=== PATIENT | female | born 1960 | race Caucasian/White ===

== ENCOUNTER 2024-04-22 13:39 | Emergency (ER) | payer MEDICARE, BC, SELFPAY ==
[2024-04-22 14:01] VITALS: BP 157/76; PULSE 81; RESP 16; TEMP 36.5; O2SAT 98; BMI 22.8
--- NOTE | 2024-04-22 14:24 | ED_ITS ---
HPI - Abdominal Pain 2 General: Chief Complaint: Abdominal Pain Stated Complaint: colon cramping Time Seen by Provider: 04/22/24 14:22 Source: patient Mode of arrival: ambulatory Limitations: no limitations History of Present Illness: Patient is a 64-year-old female presents to ED today along with her significant other for complaint of abdominal pain/cramping. Patient states she underwent colonoscopy approximately a month ago due to episode of colitis and her being not up-to-date on current colonoscopies. She states she does have a family history of colon cancer. She states the colonoscopy ultimately could not be performed and states she was told the scope going into her diverticuli . She states they scheduled her for a barium enema procedure. She states she was in [place] today and had a PET scan after nodules were found on her lungs. No results from that yet. She states she has had pain since the colonoscopy. She does have a history of colitis and diverticulitis. Since the colonoscopy, she has been seen at [facility] and was essentially told nothing was wrong. She was prescribed Bentyl. Patient not having any bloody stools. She has not had any vomiting. No fevers. MD elicited complaint: abdominal pain Pertinent past history: other (colitis/diverticulitis; family hx colon cancer) Pain Consistency: constant Location: Diffuse Severity: severe Quality: cramping Radiation: none Migration to: no migration Exacerbating factors: nothing Relieving factors: nothing Associated Symptoms: Reports GI cramping; Denies change in bowel habits, chills, dysuria, fever(s), hematochezia, melena, nausea and vomiting Related Data Home Medications Medication Instructions Recorded Confirmed dicyclomine 20 mg tablet 20 mg PO Q6H 04/22/24 04/22/24 hyoscyamine sulfate 0.375 mg 0.375 mg PO BID 04/22/24 04/22/24 tablet,extended release,12 hr levothyroxine 75 mcg tablet 75 mcg PO DAILY 04/22/24 04/22/24 (Synthroid) ondansetron 4 mg disintegrating 4 mg PO Q6H PRN Nausea And Vomiting 04/22/24 04/22/24 tablet pantoprazole 40 mg tablet,delayed 40 mg PO DAILY 04/22/24 04/22/24 release venlafaxine 150 mg 150 mg PO DAILY 04/22/24 04/22/24 capsule,extended release 24 hr Previous Rx's Medication Instructions Recorded amoxicillin 875 mg-potassium 1 tab PO BID #14 tabs 04/22/24 clavulanate 125 mg tablet hydrocodone 5 mg-acetaminophen 325 1 tab PO Q6H PRN pain #14 tabs 04/22/24 mg tablet ondansetron 4 mg disintegrating 4 mg PO Q8H PRN nausea and 04/22/24 tablet vomiting #14 tabs Allergies Allergy/AdvReac Type Severity Reaction Status Date / Time meperidine [From Demerol] Allergy ADR-Vomitin Verified 04/22/24 14:06 g metronidazole [From Flagyl] Allergy ADR-Vomitin Verified 04/22/24 14:06 g morphine Allergy ADR-Vomitin Verified 04/22/24 14:06 g Review of Systems 2 Const: Denies: fever(s), chills, body aches, fatigue or malaise Card: Denies: chest pain Resp: Denies: dyspnea GI: Reports: abdominal pain and GI cramping; Denies: nausea, vomiting, change in bowel habits, hematochezia or melena : Denies: flank pain, difficulty voiding, dysuria, urinary frequency, urinary urgency or urinary hesitancy Musc: Denies: neck pain, back pain, extremity pain, extremity swelling, joint pain or joint swelling Skin/Breast: Denies: rash Neuro: Denies: headache(s), numbness in extremities, weakness in extremities, sensory changes or dizziness Physical Exam 2 Const: COMMON NORMALS: no acute distress, average body habitus, patient oriented x3, no limitations, healthy appearing, alert and well nourished G ENERAL APPEARANCE: cooperative ORIENTATION/CONSCIOUSNESS: Yes awake, Yes oriented to person, Yes oriented to place and Yes oriented to time Eye: COMMON NORMALS: no scleral icterus Resp: COMMON NORMALS: normal respiratory effort and clear to auscultation bilaterally AUSCULTATION: clear to auscultation bilaterally Cardio: COMMON NORMALS: regular rate and regular rhythm RATE: regular rate RHYTHM: regular rhythm GI: COMMON NORMALS: Normal to inspection, nondistended, normoactive bowel sounds present, Soft to palpation, No hepatosplenomegaly present and no masses INSPECTION: Yes normal to inspection AUSCULTATION: Yes normoactive bowel sounds PALPATION: Yes Soft to palpation, Yes Tenderness to palpation present (GI) (diffusely but max to LLQ), Yes Guarding due to palpation present (GI) and Yes No hepatosplenomegaly present : COMMON NORMALS: Yes no CVA tenderness BLADDER/KIDNEY EXAM: Yes no CVA tenderness Back/Pelvis: COMMON NORMALS: no CVA tenderness and thoracic and lumbar spine normal to inspection Extremity: GENERAL: Yes normal exam except as noted Neuro: RASTA COMA SCALE: document GCS findings Rasta coma scale eye opening: Spontaneous Rasta coma scale verbal response: Orientated Rasta coma scale motor response: Obey commands [place] coma scale total score: 15 COMMON NORMALS: patient oriented x3, moves all extremities, no focal motor deficits and no sensory deficits noted SENSORIUM/ORIENTATION: Yes alert, Yes oriented to person, Yes oriented to place and Yes oriented to time Skin: COMMON NORMALS: no rashes or lesions noted GENERAL SKIN EXAM: no rashes or lesions noted Course 2 Vital Signs: Vital signs: Vital Signs Temperature 97.7 F 04/22/24 14:01 Pulse Rate 78 04/22/24 16:05 Respiratory Rate 16 04/22/24 16:05 Blood Pressure 121/53 04/22/24 16:05 Pulse Oximetry 96 04/22/24 16:05 Oxygen Delivery Me thod Room Air 04/22/24 16:05 MDM - Abdominal Pain Medical Decision Making Patient is a nice 64-year-old female here for abdominal pain and cramping mainly involving her left lower quadrant. Vital signs are stable. Blood work overall is unremarkable. UA is clear. CT scan showing mild acute diverticulitis involving her sigmoid colon. No abscess or free air. Incidental findings of pulmonary and hepatic nodules. She underwent PET scan earlier today for evaluation of the pulmonary nodules. Results of this are unknown but she will follow-up. Discussed treatment with Cipro and Flagyl for the diverticulitis although she is reporting an allergy to Flagyl so she will be treated with Augmentin. Requesting pain medications as well. Recommend she follow-up with primary care next week for re-evaluation. Return to ED precautions given Medical Records I reviewed the patient's medical records. Lab Data I reviewed the patient's lab results. 04/22/24 14:43 04/22/24 14:43 Labs/Radiology: Radiology Impressions Abdomen/Pelvis CT 04/22/24 14:30 IMPRESSION: 1. Possible mild acute diverticulitis mid sigmoid colon. No associated abscess. No free air. 2. Two tiny low-density lesions in the liver are probably cysts, but are too small to accurately characterize. Consider a follow-up CT in 6 months to ensure stability of these likely benign findings. 3. A few 5 mm and smaller solid noncalcified nodules in the lung bases. For patients at low risk (minimal or absent history of smoking and of other known risk factors), no routine follow-up is indicated. For patients at high risk (history of smoking or of other known risk factors), consider optional CT Chest at 12 months. (Reference: Lorrie). 4. Mild elevation of the right hemidiaphragm. 5. Possible constipation. 6. Additional details as above. REFERENCES: Lorrie Cuenca, et al. Guidelines for Management of Incidental Pulmonary Nodules Detected on CT Images: From the Fleischner Society 2017. Radiology. 2017;284(1):228-243. Laboratory Results WBC 6.44 10^3/uL (3.29-11.43) 04/22/24 14:43 RBC 4.69 10^6/uL (3.85-5.65) 04/22/24 14:43 Hgb 14.40 g/dL (11.27-16.99) 04/22/24 14:43 Hct 44.0 % (36-47) 04/22/24 14:43 MCV 93.8 fl (85-98) 04/22/24 14:43 MCH 30.7 pg (27-33) 04/22/24 14:43 MCHC 32.7 g/dL (30-55) 04/22/24 14:43 RDW 12.4 % (12.1-15.1) 04/22/24 14:43 Plt Count 241 10^3/cmm (157-399) 04/22/24 14:43 MPV 10.3 fL (7.4-10.4) 04/22/24 14:43 Neut % (Auto) 75.2 % 04/22/24 14:43 Lymph % (Auto) 16.0 % 04/22/24 14:43 [place] % (Auto) 8.4 % 04/22/24 14:43 Eos % (Auto) 0.2 % 04/22/24 14:43 Baso % (Auto) 0.0 % 04/22/24 14:43 Neut # (Auto) 4.85 10^3/uL (1.8-7.7) 04/22/24 14:43 Lymph # (Auto) 1.0 10^3/uL (0.8-4.8) 04/22/24 14:43 [place] # (Auto) 0.5 10^3/uL (0.2-0.9) 04/22/24 14:43 Eos # (Auto) 0.0 10^3/uL (0.0-0.8) 04/22/24 14:43 Baso # (Auto) 0.0 10^3/uL (0.0-0.1) 04/22/24 14:43 Nucleated RBC % (auto) 0 % 04/22/24 14:43 Nucleated RBCs # 0.0 /100WBC 04/22/24 14:43 Sodium 138 mmol/L (136-145) 04/22/24 14:43 Potassium 3.9 mmol/L (3.5-5.1) 04/22/24 14:43 Chloride 99 mmol/L (98-107) 04/22/24 14:43 Carbon Dioxide 27 mmol/L (22-29) 04/22/24 14:43 Anion Gap 15.9 (5-19) 04/22/24 14:43 BUN 13 mg/dL (8-23) 04/22/24 14:43 Creatinine 0.6 mg/dL (0.5-0.9) 04/22/24 14:43 GFR Calculation 100.3 mL/min (90-130) 04/22/24 14:43 Glucose 101 mg/dL (65-115) 04/22/24 14:43 Calculated Osmolality 286 mOsm/kg (285-295) 04/22/24 14:43 Calcium 9.2 mg/dL (8.5-10.5) 04/22/24 14:43 Total Bilirubin 0.3 mg/dL (0.15-1.2) 04/22/24 14:43 AST 19 U/L (0-32) 04/22/24 14:43 ALT 13 U/L (0-33) 04/22/24 14:43 Alkaline Phosphatase 85 U/L (35-105) 04/22/24 14:43 Total Protein 7.4 g/dL (6.6-8.7) 04/22/24 14:43 Albumin 4.6 g/dL (3.5-5.2) 04/22/24 14:43 Globulin 2.8 g/dL (1.3-4.6) 04/22/24 14:43 Lipase 23 U/L (13-60) 04/22/24 14:43 Urine Color Yellow (Yellow) 04/22/24 14:47 Urine Appearance Clear (CLEAR) 04/22/24 14:47 Urine pH 6 (5-7) 04/22/24 14:47 Ur Specific [place] 1.015 (1.005-1.030) 04/22/24 14:47 Urine Protein Trace (Negative) 04/22/24 14:47 Urine Glucose (UA) Norm (Normal) 04/22/24 14:47 Urine Ketones Negative (Negative) 04/22/24 14:47 Urine Blood Neg (Negative) 04/22/24 14:47 Urine Nitrate Negative (Negative) 04/22/24 14:47 Urine Bilirubin Neg (Negative) 04/22/24 14:47 Urine Urobilinogen Norm mg/dL (Negative) 04/22/24 14:47 Ur Leukocyte Esterase Negative (Negative) 04/22/24 14:47 Urine RBC 0-2 /hpf (0-2) 04/22/24 14:47 Urine WBC 6-10 /hpf (0-5) 04/22/24 14:47 Ur Squamous Epith Cells 0-5 /hpf (0-5) 04/22/24 14:47 Calcium Oxalate Crystal 5-10 /hpf H 04/22/24 14:47 Amorphous Sediment Not Reportable 04/22/24 14:47 Urine Bacteria None seen /hpf (NONE) 04/22/24 14:47 Hyaline Casts 0-4 /lpf H 04/22/24 14:47 Ur Oval Fat Bodies 1+ /hpf 04/22/24 14:47 All radiology interpretation(s) finalized by discharge Discharge Plan Discharge Patient Disposition: Home Clinical Impression: Diverticulitis Condition: Stable Prescriptions: New hydrocodone-acetaminophen 5-325 mg tablet 1 tab PO Q6H PRN (Reason: pain) Qty: 14 0RF ondansetron 4 mg tablet,disintegrating 4 mg PO Q8H PRN (Reason: nausea and vomiting) Qty: 14 0RF amoxicillin-pot clavulanate 875-125 mg tablet 1 tab PO BID Qty: 14 0RF No Action venlafaxine 150 mg capsule,extended release 24hr 150 mg PO DAILY levothyroxine [Synthroid] 75 mcg tablet 75 mcg PO DAILY hyoscyamine sulfate 0.375 mg tablet extended release 12 hr 0.375 mg PO BID dicyclomine 20 mg tablet 20 mg PO Q6H pantoprazole 40 mg tablet,delayed release (DR/EC) 40 mg PO DAILY ondansetron 4 mg tablet,disintegrating 4 mg PO Q6H PRN (Reason: Nausea And Vomiting) Discharge Orders: Discharge ED (Routine); Ordered 04/22/24 Ordered By: Qing Morris Patient Instructions: Diverticulitis, Diverticulitis (DC), Opioid Safety, Pain Management Activity Restrictions/Additional Instructions: Please fill your antibiotics and start them immediately. You may take the pain medications sparingly for severe pain. Make sure you take them with stool softeners and/or MiraLAX to help avoid further constipation. Please follow-up with your primary care next week for reevaluation. You need to return to the emergency department for worsening abdominal pain, repetitive episodes of vomiting, inability to hold down your antibiotics, fevers, generally feeling worse or unwell, or any other concerns you may have. I hope you begin to feel better soon. Coding Level of Care Code ED Vacuum System Tester for Ramana Aguilar
--- NOTE | 2024-04-22 14:30 | CTR_ITS ---
PROCEDURE INFORMATION: Exam: CT Abdomen And Pelvis With Contrast Exam date and time: 04/22/2024 3:33 PM Age: 64 years old Clinical indication: Abdominal pain; Generalized; Additional info: Abdominal pain/cramping, HX colitis, diverticulitis; Colonoscopy several weeks ago TECHNIQUE: Imaging protocol: Computed tomography of the abdomen and pelvis with contrast. Radiation optimization: All CT scans at this facility use at least one of these dose optimization techniques: automated exposure control; mA and/or kV adjustment per patient size (includes targeted exams where dose is matched to clinical indication); or iterative reconstruction. Contrast material: OMNI 350; Contrast volume: 100 ml; Contrast route: INTRAVENOUS (IV); COMPARISON: No relevant prior studies available. RADIATION DOSE METRICS: Total DLP (mGy-cm): 440.39 FINDINGS: Lungs: Tiny amounts of bilateral dependent subsegmental atelectasis. Small amount of scarring in the lung bases. A few 5 mm and smaller solid noncalcified nodules in the lung bases. Otherwise, unremarkable. Diaphragm: Mild elevation of the right hemidiaphragm. Liver: Tiny low-density lesion in the dome of the liver and another in the anterior left lobe of the liver are probably cysts, but are too small to accurately characterize. Otherwise, unremarkable. Gallbladder and biliary ducts: Normal. No calcified stones. No ductal dilation. Pancreas: Normal. No ductal dilation. Spleen: Normal. No splenomegaly. Adrenal glands: Normal. No mass. Kidneys and ureters: Normal. No hydronephrosis. Stomach and bowel: Diverticula from the colon. There is a small amount of fluid in the pelvis. This could indicate very mild acute mid sigmoid diverticulitis. No abscess. Stool burden suggests constipation. Otherwise, unremarkable. Appendix: No evidence of appendicitis. Intraperitoneal space: No other free fluid. No free air. Vasculature: Findings of left pelvic congestion. Moderate amount of arterial calcification. Otherwise, unremarkable. Lymph nodes: Unremarkable. No enlarged lymph nodes. Urinary bladder: Unremarkable as visualized. Reproductive: Unremarkable as visualized. Bones/joints: Mild scoliosis. Multilevel spondylosis ranging from minimal to moderate. Otherwise, unremarkable. Soft tissues: Otherwise, unremarkable visualized body wall. Otherwise, unremarkable soft tissues. CT/CT abdomen pelvis w con* [id number] IMPRESSION: 1. Possible mild acute diverticulitis mid sigmoid colon. No associated abscess. No free air. 2. Two tiny low-density lesions in the liver are probably cysts, but are too small to accurately characterize. Consider a follow-up CT in 6 months to ensure stability of these likely benign findings. 3. A few 5 mm and smaller solid noncalcified nodules in the lung bases. For patients at low risk (minimal or absent history of smoking and of other known risk factors), no routine follow-up is indicated. For patients at high risk (history of smoking or of other known risk factors), consider optional CT Chest at 12 months. (Reference: Lorrie). 4. Mild elevation of the right hemidiaphragm. 5. Possible constipation. 6. Additional details as above. REFERENCES: Lorrie H, et al. Guidelines for Management of Incidental Pulmonary Nodules Detected on CT Images: From the Fleischner Society 2017. Radiology. 2017;284(1):228-243.
[2024-04-22 14:49] LABS: Eosinophils % 0.2 %; Mean Corpuscular HGB Conc 32.7 g/dL (30-55); Mean Corpuscular Hemoglobin 30.7 pg (27-33); Mean Corpuscular Volume 93.8 fl (85-98); Mean Platelet Volume 10.3 fL (7.4-10.4); Monocytes # 0.5 10^3/uL (0.2-0.9); Monocytes % 8.4 %; Neutrophils # 4.85 10^3/uL (1.8-7.7); Neutrophils % 75.2 %; Nucleated Red Blood Cells % 0 %; Platelet Count 241 10^3/cmm (157-399); Red Blood Count 4.69 10^6/uL (3.85-5.65); Red Cell Distribution Width 12.4 % (12.1-15.1); White Blood Count 6.44 10^3/uL (3.29-11.43)
[2024-04-22 15:00] VITALS: RESP 16; O2SAT 98
[2024-04-22] MEDS: HYDROmorphone 1 mg/mL INJ 1 mL IVP (15:00)
[2024-04-22] MEDS: ondansetron 2 mg/ML SDV 2 mL 4 MG IVP (15:00)
[2024-04-22 15:12] VITALS: BP 159/71; PULSE 82; RESP 16; O2SAT 95
[2024-04-22 15:16] LABS: Alanine Aminotransferase 13 U/L (0-33); Albumin Level 4.6 g/dL (3.5-5.2); Alkaline Phosphatase 85 U/L (35-105); Anion Gap 15.9 (5-19); Blood Urea Nitrogen 13 mg/dL (8-23); Calcium 9.2 mg/dL (8.5-10.5); Carbon Dioxide 27 mmol/L (22-29); Chloride 99 mmol/L (98-107); Globulin 2.8 g/dL (1.3-4.6); Glomerular Filtration Rate 100.3 mL/min (90-130); Glucose 101 mg/dL (65-115); Lipase 23 U/L (13-60); Osmolality Calculated 286 mOsm/kg (285-295); Potassium 3.9 mmol/L (3.5-5.1); Sodium 138 mmol/L (136-145); Total Bilirubin 0.3 mg/dL (0.15-1.2); Total Protein 7.4 g/dL (6.6-8.7)
[2024-04-22 15:20] LABS: Bacteria Urine None Seen /hpf; Hyaline Casts Urine 0-4 /lpf; RBC Urine 0-2 /hpf (0-2); Squamous Epithelial Cell Urine 0-5 /hpf (0-5)
[2024-04-22 15:23] LABS: Aspartate Amino Transferase 19 U/L (0-32)
[2024-04-22 15:26] LABS: Add Urine Microscopic? YES; Bilirubin Urine Neg (Negative); Blood Urine Neg (Negative); Glucose Urine UA Norm (Normal); Ketones Urine Negative (Negative); Leukocyte Esterase Urine Negative (Negative); Nitrate Urine Negative (Negative); Protein Urine Trace (Negative); Specific Gravity, Urine 1.015 (1.005-1.030); Urine Appearance Clear (CLEAR); Urine Color Yellow (Yellow); Urobilinogen Urine Norm (Negative); pH Urine 6 (5-7)
[2024-04-22 15:27] LABS: Add Urine Culture? No
[2024-04-22 15:30] LABS: Oval Fat Bodies Urine 1+ /hpf
[2024-04-22 16:05] VITALS: BP 121/53; PULSE 78; RESP 16; O2SAT 96
[2024-04-22 16:48] VITALS: BP 138/50; PULSE 69; RESP 16; O2SAT 100
== END 2024-04-22 16:48 | disposition home or self-care (01) ==
PROVIDERS: Emergency Provider Physician Assistant
DX: K57.92 Diverticulitis of intestine, part unspecified, without perforation or abscess without bleeding (principal)
CPT/HCPCS: 74177; 80053; 81001; 83690; 85025; 96374; 96375; 99285; J1171; J2405; Q9967

== ENCOUNTER 2024-11-24 16:37 | Outpatient (CLI) | payer MEDICARE, BC, SELFPAY ==
--- NOTE | 2024-11-24 16:40 | CTR_ITS ---
PROCEDURE INFORMATION: Exam: CT Abdomen Without Contrast Exam date and time: 11/24/2024 4:47 PM Age: 64 years old Clinical indication: Abnormal findings; Abnormal radiologic finding of the abdomen; Radiologic exam and body structure: CT abd/pel with; Follow up liver lesion TECHNIQUE: Imaging protocol: Computed tomography of the abdomen without contrast. Radiation optimization: All CT scans at this facility use at least one of these dose optimization techniques: automated exposure control; mA and/or kV adjustment per patient size (includes targeted exams where dose is matched to clinical indication); or iterative reconstruction. COMPARISON: CT abdomen pelvis w con* [id number] 04/22/2024 3:33 PM RADIATION DOSE METRICS: Total DLP (mGy-cm): 206.18 FINDINGS: Limitations: Examination is limited for the evaluation of solid organs and vascular structures due to the lack of intravenous contrast. Lungs: Lung bases are unremarkable. Liver: The liver is unremarkable. Lack of contrast limits evaluation for liver lesion. No intrahepatic ductal dilatation. Gallbladder and biliary ducts: No intrahepatic or extrahepatic biliary ductal dilatation. The gallbladder is unremarkable with no radioopaque stone. Pancreas: Pancreas is unremarkable. No ductal dilation or peripancreatic inflammation. Spleen: The spleen is unremarkable. Adrenal glands: Adrenal glands are unremarkable. Kidneys: Mild right hydronephrosis. 2.8 mm stone in the proximal right ureter. Stomach and bowel: Stomach is not distended. Small and large bowel are normal in caliber without evidence of obstruction. Intraperitoneal space: No free intraperitoneal air. No significant fluid collection. Vasculature: There is no aortic aneurysm. There is atherosclerotic disease. Lymph nodes: No pathologically enlarged lymph nodes (by short axis size criteria). Bones/joints: No acute osseous abnormality. There is degenerative disease of the spine. Soft tissues: There is a small fat containing umbilical hernia. CT/CT abdomen wo con [id number] IMPRESSION: 1. Liver cannot be adequately evaluated for lesions as there was no contrast administered. 2. 2.8 mm stone in the proximal right ureter with mild right hydronephrosis.
== END 2024-11-24 16:38 | disposition home or self-care (01) ==
PROVIDERS: PCP Nurse Practitioner Family; Visit Provider Nurse Practitioner Family
DX: K76.9 Liver disease, unspecified (principal); N13.2 Hydronephrosis with renal and ureteral calculous obstruction
CPT/HCPCS: 74150

== ENCOUNTER 2024-12-08 09:38 | Outpatient (CLI) | payer MEDICARE, BC, SELFPAY ==
--- NOTE | 2024-12-08 09:50 | CT_ITS ---
WS: [id number] CT ABDOMEN WITH CONTRAST HISTORY: LIVER LESION/ABDOMINAL PAIN Contiguous single phase 5 mm axial imaging performed through the abdomen. Oral contrast has not been provided. Coronal and sagittal reformats are submitted. All CT scans at [facility] use at least one of these dose optimization techniques: automated exposure control; mA and/or kV adjustment per patient size (includes targeted exams where dose is matched to clinical indication); or iterative reconstruction. IV CONTRAST: Omnipaque 350; 100 mL IV. Oral contrast: No DLP: 189.38 mGy.cm COMPARISON: 11/24/2024, 04/22/2024 Lower thorax: No change in the micronodules at the lung bases or the lingula since 04/22/2024. Normal size heart. Small hiatal hernia. Mild elevation RIGHT hemidiaphragm. Liver/biliary system: Normal size liver. Tiny, less than 4 mm hypodensities in the RIGHT lobe and the LEFT lobe of the liver are too small to characterize. No interval change since 04/22/2024. Portal vein is normal. No intrahepatic duct dilatation. Gallbladder: Normal. No gallstones or wall thickening. No pericholecystic fluid. Pancreas: Normal size pancreas and pancreatic duct. No adjacent inflammation. Spleen: Normal size spleen. No mass or infarct. Adrenal glands: Normal. Right kidney: Normal. Left kidney: Normal. Aorta: Mild atherosclerosis with no aneurysm. Calcified plaque at the origin of the celiac axis and SMA but no occlusion. Lymphadenopathy: None. Free fluid: None. GI tract: Constipation within the visualized colon of the abdomen. No obstructive pattern. No colitis. Abdominal wall: Unremarkable abdominal wall. No hernia. Visualized osseous structures: Multilevel spondylosis. CT/CT abdomen w con* [id number] IMPRESSION: 1. No increase in size of the tiny hypodensities within the liver which are li rajesh cysts but too small to characterize. 2. Stable micronodules at the lung bases since 04/22/2024. With a minimal or ab sent history of smoking no follow-up necessary. There is a history of smoking 1 2-month chest CT evaluation can be obtained. 3. Atherosclerosis aorta.
[2024-12-08 10:29] LABS: Blood Urea Nitrogen 11 mg/dL (8-23)
[2024-12-08] MEDS: iohexol 350 mg/mL 500 mL Btl (per mL) IV (10:34)
== END 2024-12-08 09:39 | disposition home or self-care (01) ==
PROVIDERS: Radiology Diagnostic Radiology; PCP Nurse Practitioner Family; Visit Provider Nurse Practitioner Family
DX: K76.9 Liver disease, unspecified (principal); R10.9 Unspecified abdominal pain; R91.8 Other nonspecific abnormal finding of lung field; I70.0 Atherosclerosis of aorta; K44.9 Diaphragmatic hernia without obstruction or gangrene; R93.89 Abnormal findings on diagnostic imaging of other specified body structures; I70.8 Atherosclerosis of other arteries; K59.00 Constipation, unspecified; M47.9 Spondylosis, unspecified
CPT/HCPCS: 74160; 82565; 84520